=== PATIENT | female | born 1965 | race Caucasian/White ===

== ENCOUNTER → 2025-01-24 14:13 | Outpatient (BNVA) | payer OTHER, SELFPAY | PROVIDERS: Visit Provider Physician Assistant Medical | DX: S00.83XA Contusion of other part of head, initial encounter (principal); S16.1XXA Strain of muscle, fascia and tendon at neck level, initial encounter; S46.811A Strain of other muscles, fascia and tendons at shoulder and upper arm level, right arm, initial encounter; R51.9 Headache, unspecified; W07.XXXA Fall from chair, initial encounter | CPT/HCPCS: 99203 ==

== ENCOUNTER → 2025-01-27 08:00 | Outpatient (BNVA) | payer OTHER, SELFPAY | PROVIDERS: Visit Provider Physician Assistant Medical | DX: S00.83XA Contusion of other part of head, initial encounter (principal); S16.1XXA Strain of muscle, fascia and tendon at neck level, initial encounter; S46.811A Strain of other muscles, fascia and tendons at shoulder and upper arm level, right arm, initial encounter; W07.XXXA Fall from chair, initial encounter; Z02.79 Encounter for issue of other medical certificate | CPT/HCPCS: 99213 ==